=== PATIENT | female | born 1970 | race Caucasian/White ===

== ENCOUNTER → 2016-09-22 | Outpatient (CLI) | payer OTHER ==
--- NOTE | 2016-09-22 15:17 | MA ---
Screening Digital Mammogram With iCAD Analysis Clinical Indications: Routine screening. Her mother was diagnosed with breast cancer in her 60s. Technique: Standard cephalocaudal projections are obtained. Digital breast tomosynthesis was performe d in the MLO projection with reconstruction at 1.0 mm slice thickness and composite MLO views reconst ructed. This examination is processed by the iCAD computer aided detection system. Comparison: August 2015, June 2014, September 2013, May 2013, April 2012. Breast density: Type C: Heterogeneously dense. Findings: CAD was reviewed. No masses, suspicious calcifications or secondary signs of malignancy are seen. There has been no significant change in the appearance of either breast. Impression: Negative mammogram. BI-RADS 1. Recommendation: Routine mammographic screening in one year as long as physical examination is negativ e in this patient with heterogeneously dense breast parenchyma. [facility] will send a result letter to the patient. Negative mammography should not preclude additional workup of a clinically suspicious finding. The patient's information is entered into a reminder system with a target due date for her next mammo gram.
== END ==
LOC: FIMAGING 09:36
DX: Z12.31 Encounter for screening mammogram for malignant neoplasm of breast (principal); Z80.3 Family history of malignant neoplasm of breast
CPT/HCPCS: G0202

== ENCOUNTER → 2017-10-19 | Outpatient (CLI) | payer OTHER | LOC: FIMAGING 10:33 | PROVIDERS: ATTEND Physician Assistant | DX: Z12.31 Encounter for screening mammogram for malignant neoplasm of breast (principal); Z80.3 Family history of malignant neoplasm of breast ==